=== PATIENT | female | born 1980 | race Caucasian/White ===

== ENCOUNTER → 2017-07-15 | Outpatient (CLI) | payer OTHER ==
--- NOTE | 2017-07-16 07:42 | RAD ---
Chest, 2 views, 07/15/2017: History: Chest pain, cough, congestion, shortness of breath Comparison is made to a study from 05/21/2014. The heart size and pulmonary vascularity are normal. Minimal streaky basilar atelectasis/infiltrate has developed posteriorly as seen on the lateral view, probably lying in the right base. The lungs are otherwise clear. There is no evidence of pleural fluid. IMPRESSION: Minimal right basilar atelectasis/infiltrate.
== END | disposition home or self-care (01) ==
LOC: RAD 18:27
PROVIDERS: ATTEND Nurse Practitioner Family
DX: R07.9 Chest pain, unspecified (principal)
CPT/HCPCS: 71046

== ENCOUNTER → 2017-08-01 | Outpatient (CLI) | payer OTHER ==
--- NOTE | 2017-08-01 14:14 | RAD ---
2 view CXR: Clinical indications: Pneumonia. Follow-up study Findings: There has been interval clearing of the right lower lobe lung infiltrate seen previously. No new lung infiltrate or pleural effusion or pulmonary edema or lung mass or pneumothorax is seen. The heart size, pulmonary vasculature, mediastinum and both sarah are unremarkable. The osseous structures appear intact. Impression: Interval clearing of right lower lobe lung infiltrate seen previously.
== END | disposition home or self-care (01) ==
LOC: DXRAD 10:07
PROVIDERS: ATTEND Nurse Practitioner Family
DX: J18.9 Pneumonia, unspecified organism (principal)
CPT/HCPCS: 71046

== ENCOUNTER → 2018-07-23 | Outpatient (CLI) | payer OTHER ==
--- NOTE | 2018-07-23 12:40 | RAD ---
NECK SOFT TISSUE Clinical Indication: thyroidectomy 2016. pt is having neck fullness lat and medial to ml of neck. Comparison: Thyroid ultrasound, 04/04/2017 and 03/28/2016. TECHNIQUE: Real-time ultrasound imaging of the thyroid and neck soft tissues is performed. Findings: The thyroid isthmus and the left thyroid lobe are not identified. Right thyroid lobe appears to be present. There is a solid, isoechoic, heterogeneous nodule measuring 20 x 16 x 19 mm, previously measuring 19 x 17 x 18 mm. Therefore unchanged. This nodule may have undergone FNA in 2016. Correlate to prior procedures. There may be a second smaller nodule more superiorly measuring up to 8 mm. There is a prominent but benign-appearing lymph node in the right neck with a normal fatty hilum and no asymmetric cortical thickening. There is a benign lymph node in the left neck. IMPRESSION: 1. Dominant right thyroid nodule is stable. 2. No abnormal lymph nodes are seen in the neck. Electronically signed by: Lee Cornejo MD (07/23/2018 12:37 PM) [id number]
== END | disposition home or self-care (01) ==
LOC: US 09:36
PROVIDERS: ATTEND Physician Assistant Medical
DX: E04.1 Nontoxic single thyroid nodule (principal)
CPT/HCPCS: 76536

== ENCOUNTER → 2020-10-27 | Outpatient (CLI) | payer OTHER ==
--- NOTE | 2020-10-27 10:44 | RAD ---
EXAM: XR CHEST 2V 10/27/2020 10:24 AM CLINICAL INDICATION: Shortness of breath, chest pain, history of pneumonia COMPARISON: 08/01/2017 TECHNIQUE: PA and lateral views of the chest FINDINGS: The heart and mediastinum are normal. Lungs are adequately expanded. No consolidation, p leural effusion, or pneumothorax. Pulmonary vascularity is normal. The thoracic skeleton is intact. IMPRESSION: No acute cardiopulmonary abnormality. Electronically signed by: Rosanne Corbett MD (10/27/2020 10:42 AM) [id number]
== END ==
LOC: RAD 10:16
PROVIDERS: ATTEND Nurse Practitioner Family
DX: J22 Unspecified acute lower respiratory infection (principal)
CPT/HCPCS: 71046

== ENCOUNTER → 2021-07-25 | Outpatient (CLI) | payer BC ==
--- NOTE | 2021-07-25 14:57 | RAD ---
INDICATION: 41 years of age asymptomatic female patient presents for screening mammography. History o f benign left breast biopsy. No personal or family history of breast cancer. TECHNIQUE: Full field craniocaudal and mediolateral oblique images of both breasts were obtained usi ng digital technique with tomosynthesis and also analyzed with computer-aided detection software. COMPARISON: Prior mammographic imaging dating back to 03/26/2016. BREAST COMPOSITION: Category C: The breast tissue is heterogeneously dense, which could obscure detec tion of small masses. FINDINGS: No suspicious masses, microcalcifications or architectural distortion is present to suggest malignanc y in either breast. Bilateral circumscribed masses, statistically benign. Postbiopsy changes in the l eft breast. The visualized axillae are unremarkable. IMPRESSION: No mammographic evidence of malignancy. RECOMMENDATION: Annual screening mammography is recommended, unless clinically indicated sooner based on symptoms or change in physical exam. BIRADS 2: BENIGN This study was interpreted with the benefit of Computerized Aided Detection (CAD). ?Your patient's mammogram demonstrates that she has dense breast tissue (breast density category C or D), which could hide abnormalities, and if she has other risk factors for breast cancer that have be en identified, she might benefit from supplemental screening tests that may be suggested by you as he r ordering physician. Dense breast tissue, in and of itself, is a relatively common condition. Theref ore, this information is not provided to cause undue concern, but rather to raise your awareness and to promote discussion with your patient regarding the presence of other risk factors, in addition to dense breast tissue. Your patient's mammography results will be sent to her. Patient information is entered into the reminder system with a target due date for the next screening mammogram. Mammography is the most sensitive method for finding small breast cancers, but it does not detect the m all and is not a substitute for careful clinical examination. A negative mammogram does not negate a clinically suspicious finding and should not result in delay in biopsying a clinically suspicious a bnormality. "Our facility is accredited by the [employer] Mammography Program." Electronically signed by: Faisal Brock DO (07/25/2021 2:55 PM) [id number]
== END ==
LOC: MAMMO 07:54
PROVIDERS: ATTEND Physician Assistant Medical
DX: Z12.31 Encounter for screening mammogram for malignant neoplasm of breast (principal)
CPT/HCPCS: 77063; 77067